=== PATIENT | male | born 1965 | race Caucasian/White ===

== ENCOUNTER 2017-03-26 13:46 | Emergency (ER) | payer BC ==
[2017-03-26] MEDS ORDERED: Diphtheria,Pertussis(Acell),Tetanus Vaccine 0.5 ML SDV IM ONE (13:55)
[2017-03-26] MEDS ORDERED: Lidocaine 1% 20 ML MDV INJECT ONE (13:56)
[2017-03-26] MEDS ORDERED: Bacitracin Oint 1 GM U/D Packet TOP ONE (13:57)
[2017-03-26 13:59] VITALS: BP 175/116
--- NOTE | 2017-03-26 14:38 | EDM.PDOC ---
ED HPI Skin/Rash - General Chief Complaint: Laceration Stated Complaint: CUT LT MIDDLE FINGER Time Seen by Provider: 03/26/17 13:55 Source: Reports: Patient History Limitations: Reports: No limitations - History of Present Illness INITIAL COMMENTS - FREE TEXT/NARRATIVE: pt was pruning trees and lacerated his fingerr on the craig aspec-- 1/2 inch. Pt has full sensation and movement in finger. Timing: Reports: still present Location, Skin: Reports: upper extremity, left Known Identified Source: yes Place: home - Related Data Allergies Allergy/AdvReac Type Severity Reaction Status Date / Time No Known Allergies Allergy Verified 03/26/17 14:11 Home Meds: Ambulatory Orders Medication Instructions Recorded Confirmed NK [No Known Home Meds] 03/26/17 03/26/17 Past Medical History - Infectious Disease History Infectious Disease History: Reports: Chicken pox - Past Surgical History GI Surgical History: Reports: Hernia, inguinal Social & Family History - Tobacco Use Smoking Status *Q: Never Smoker Second Hand Smoke Exposure: No - Caffeine Use Caffeine Use: Reports: Coffee - Alcohol Use Days Per Week of Alcohol Use: 3 Number of Drinks Per Day: 3 Total Drinks Per Week: 9 - Recreational Drug Use Recreational Drug Use: No ED ROS GENERAL - Review of Systems Review Of Systems: See Below Constitutional: Reports: no symptoms HEENT: Reports: No symptoms Respiratory: Reports: No Symptoms Cardiovascular: Reports: No symptoms Endocrine: Reports: no symptoms GI/Abdominal: Reports: No symptoms : Reports: no symptoms Skin: Reports: other ( laceration of middle finger on left) Neurological: Reports: No Symptoms ED EXAM, SKIN/RASH Exam: See Below Text/Narrative:: pt has a laceration of the middle finger on the left. Exam Limited By: No limitations General Appearance: alert Extremities: other (Pt has a 1/2 inch laceration on the middle finger on the left. he has normal sensation and normal motion. ) Course - Vital Signs Last Recorded V/S: Last Vital Signs Temp 35.9 C 03/26/17 14:08 Pulse 95 03/26/17 14:08 Resp 16 03/26/17 14:08 BP 175/116 H 03/26/17 14:08 Pulse Ox 93 L 03/26/17 14:08 - Orders/Labs/Meds Orders: Active Orders 24 hr Category Date Time Status Vaccines to be Administered [RC] PER UNIT ROUTINE Care 03/26/17 13:55 Active Meds: Medications Discontinued Medications Generic Name Dose Route Start Last Admin Trade Name Redd PRN Reason Stop Dose Admin Bacitracin 1 dose 03/26/17 13:57 03/26/17 14:23 Bacitracin Oint 1 Gm TOP 03/26/17 13:58 1 dose ONETIME ONE Administration Diphtheria/Tetanus/Acell Pertussis 0.5 ml 03/26/17 13:55 03/26/17 14:13 Adacel IM 03/26/17 13:56 0.5 ml .ONCE ONE Administration Lidocaine HCl 20 ml 03/26/17 13:56 03/26/17 14:15 Xylocaine 1% INJECT 03/26/17 13:57 20 ml ONETIME ONE Administration - Re-Assessments/Exams Free Text/Narrative Re-Assessment/Exam: 03/26/17 14:36 area was cleansed well and infiltrated with lidocaine 1%. The wound was closed with 5-0 chromic and %5-0 prolene It was dressed with bacatracin pressure dressing. Departure - Departure Time of Disposition: 14:38 Disposition: Home, Self-Care 01 Condition: fair Clinical Impression: Laceration of left middle finger Forms: ED Department Discharge Care Plan Goals: keep dry, no further ointments, suture removal in 7-8 days. - My Orders Last 24 Hours: My Active Orders 03/26/17 13:55 Vaccines to be Administered [RC] PER UNIT ROUTINE - Assessment/Plan Last 24 Hours: My Active Orders 03/26/17 13:55 Vaccines to be Administered [RC] PER UNIT ROUTINE
== END 2017-03-26 15:03 | disposition home or self-care (01) ==
LOC: JP.ED 13:46
DX: S61.213A Laceration without foreign body of left middle finger without damage to nail, initial encounter (principal); Z23 Encounter for immunization; W26.8XXA Contact with other sharp object(s), not elsewhere classified, initial encounter; Y92.009 Unspecified place in unspecified non-institutional (private) residence as the place of occurrence of the external cause
CPT/HCPCS: 12001; 90471; 90715; 99283-25

== ENCOUNTER 2022-01-27 09:46 | Emergency (ER) | payer BC ==
[2022-01-27 09:55] VITALS: BP 145/95; PULSE 79
[2022-01-27] MEDS ORDERED: Sodium Chloride 0.9% 10 ML Syringe FLUSH PRN (09:55)
[2022-01-27] MEDS ORDERED: Albuterol/Ipratropium 3.0-0.5 MG/3 ML Neb Soln NEB ONE (09:56)
[2022-01-27] MEDS ORDERED: LORazepam 2 MG/ML SDV IVPUSH ONE (09:58)
[2022-01-27] MEDS ORDERED: Sodium Chloride 0.9% 75 ML IV SCH (11:30)
[2022-01-27] MEDS ORDERED: Iopamidol 755 Mg/ML 100 ML Bottle IV SCH (11:30)
== END 2022-01-27 12:51 | disposition home or self-care (01) ==
LOC: JP.ED 09:46
DX: R06.02 Shortness of breath (principal)
CPT/HCPCS: 36415; 71046; 71046-26; 71275; 71275-26; 80053; 83880; 84484; 85025; 85379; 93005; 93010; 94640; 96374; 99282; 99285-25; J2060; J7620-GY; Q9967

== ENCOUNTER 2022-02-26 06:59 | Emergency (ER) | payer BC ==
[2022-02-26] MEDS ORDERED: Sodium Chloride 0.9% 10 ML Syringe FLUSH PRN (07:04)
[2022-02-26 07:05] VITALS: PULSE 111
[2022-02-26] MEDS ORDERED: LORazepam 2 MG/ML SDV IVPUSH ONE (07:34)
[2022-02-26] MEDS ORDERED: Thiamine 200 MG/2 ML MDV IVPUSH ONE (07:37)
[2022-02-26] MEDS ORDERED: Sodium Chloride 0.9% 1,000 ML IV SCH (08:00)
[2022-02-26 08:07] LABS: CORONAVIRUS COVID-19 NAA NEGATIVE (NEGATIVE)
[2022-02-26] MEDS ORDERED: PHENobarbital Sodium 65 MG/ML SDV IVPUSH ONE (08:26)
[2022-02-26 09:37] VITALS: BP 124/68
== END 2022-02-26 09:38 | disposition other institution (70) ==
LOC: JP.ED 06:59
DX: S00.03XA Contusion of scalp, initial encounter (principal); F10.239 Alcohol dependence with withdrawal, unspecified; K70.30 Alcoholic cirrhosis of liver without ascites; Z20.822 Contact with and (suspected) exposure to COVID-19; W19.XXXA Unspecified fall, initial encounter
CPT/HCPCS: 0241U; 36415; 70450; 80048; 80076; 80307; 82140; 85025; 85610; 85730; 93005; 93010; 96374; 96375; 99284; 99285-25; J2060; J2560; J3411; J3490; J7030

== ENCOUNTER 2022-03-05 07:43 | Inpatient (IN) | payer BC ==
[2022-03-05] MEDS ORDERED: Magnesium Hydroxide 400 MG/5 ML Susp 30 ML Cup PO PRN (14:18)
[2022-03-05] MEDS ORDERED: Ibuprofen 600 MG Tab PO PRN (14:18)
[2022-03-05] MEDS ORDERED: Ondansetron 4 MG/2 ML SDV IV PRN (14:18)
[2022-03-05] MEDS ORDERED: LORazepam 2 MG/ML SDV IVPUSH PRN (14:18)
[2022-03-05] MEDS ORDERED: Albuterol 0.083% 2.5 MG/3 ML Neb Soln NEB PRN (14:18)
[2022-03-05] MEDS ORDERED: Ondansetron 4 MG Tab.DIS PO PRN (14:18)
[2022-03-05] MEDS: Lactulose Soln 10 GM/15 ML 15 ML UD Cup PO SCH (16:06)
[2022-03-05] MEDS ORDERED: prednisoLONE 15 MG/5 ML Soln UD Cup PO ONE (16:15)
[2022-03-05 16:56] LABS: CORONAVIRUS COVID-19 NAA NEGATIVE (NEGATIVE)
[2022-03-05] MEDS: Melatonin 3 MG Tab PO SCH (20:18)
[2022-03-05] MEDS: Formoterol/Mometasone 100-5 MCG 8.8 GM Inhaler IH SCH (20:18)
[2022-03-05] MEDS ORDERED: Non-Formulary Medication 1 Each (Budesonide/Formoterol Fumarate [Symbicort 80-4.5 Mcg Inha INH SCH (21:00)
[2022-03-06] MEDS: Formoterol/Mometasone 100-5 MCG 8.8 GM Inhaler IH SCH ×2 (07:25→20:13)
[2022-03-06] MEDS: Folic Acid 1 MG Tab PO SCH (09:06)
[2022-03-06] MEDS: Pantoprazole 40 MG Tab.CR PO SCH (09:06)
[2022-03-06] MEDS: Lactulose Soln 10 GM/15 ML 15 ML UD Cup PO SCH (09:06)
[2022-03-06] MEDS: prednisoLONE 15 MG/5 ML Soln UD Cup PO SCH (09:07)
[2022-03-06] MEDS: Phytonadione 5 MG Tab PO SCH (09:07)
[2022-03-06] MEDS: Thiamine 100 MG Tab PO SCH (09:07)
[2022-03-06] MEDS: Melatonin 3 MG Tab PO SCH (20:05)
[2022-03-07] MEDS: Formoterol/Mometasone 100-5 MCG 8.8 GM Inhaler IH SCH ×2 (07:30→21:29)
[2022-03-07] MEDS: Phytonadione 5 MG Tab PO SCH (08:40)
[2022-03-07] MEDS: Lactulose Soln 10 GM/15 ML 15 ML UD Cup PO SCH (08:40)
[2022-03-07] MEDS: Folic Acid 1 MG Tab PO SCH (08:40)
[2022-03-07] MEDS: prednisoLONE 15 MG/5 ML Soln UD Cup PO SCH (08:40)
[2022-03-07] MEDS: Pantoprazole 40 MG Tab.CR PO SCH (08:40)
[2022-03-07] MEDS: Thiamine 100 MG Tab PO SCH (08:40)
[2022-03-07] MEDS: Melatonin 3 MG Tab PO SCH (21:29)
[2022-03-08] MEDS: Pantoprazole 40 MG Tab.CR PO SCH (07:19)
[2022-03-08] MEDS: Formoterol/Mometasone 100-5 MCG 8.8 GM Inhaler IH SCH ×2 (07:27→21:24)
[2022-03-08] MEDS: Lactulose Soln 10 GM/15 ML 15 ML UD Cup PO SCH (09:51)
[2022-03-08] MEDS: prednisoLONE 15 MG/5 ML Soln UD Cup PO SCH (09:52)
[2022-03-08] MEDS: Thiamine 100 MG Tab PO SCH (09:52)
[2022-03-08] MEDS: Folic Acid 1 MG Tab PO SCH (09:52)
[2022-03-08] MEDS: Phytonadione 5 MG Tab PO SCH (09:52)
[2022-03-08] MEDS: Melatonin 3 MG Tab PO SCH (21:24)
[2022-03-09] MEDS: Formoterol/Mometasone 100-5 MCG 8.8 GM Inhaler IH SCH ×2 (07:07→20:50)
[2022-03-09] MEDS: Thiamine 100 MG Tab PO SCH (09:14)
[2022-03-09] MEDS: Folic Acid 1 MG Tab PO SCH (09:14)
[2022-03-09] MEDS: Lactulose Soln 10 GM/15 ML 15 ML UD Cup PO SCH (09:14)
[2022-03-09] MEDS: prednisoLONE 15 MG/5 ML Soln UD Cup PO SCH (09:14)
[2022-03-09] MEDS: Pantoprazole 40 MG Tab.CR PO SCH (09:14)
[2022-03-09] MEDS: Citalopram 20 MG Tab PO SCH (12:23)
[2022-03-09] MEDS: Melatonin 3 MG Tab PO SCH (20:49)
[2022-03-10] MEDS: Formoterol/Mometasone 100-5 MCG 8.8 GM Inhaler IH SCH ×2 (07:37→21:04)
[2022-03-10] MEDS: Pantoprazole 40 MG Tab.CR PO SCH (10:05)
[2022-03-10] MEDS: Lactulose Soln 10 GM/15 ML 15 ML UD Cup PO SCH (10:05)
[2022-03-10] MEDS: Citalopram 20 MG Tab PO SCH (10:05)
[2022-03-10] MEDS: Folic Acid 1 MG Tab PO SCH (10:05)
[2022-03-10] MEDS: prednisoLONE 15 MG/5 ML Soln UD Cup PO SCH (10:05)
[2022-03-10] MEDS: Thiamine 100 MG Tab PO SCH (10:06)
[2022-03-10] MEDS: Melatonin 3 MG Tab PO SCH (21:06)
[2022-03-11] MEDS: Formoterol/Mometasone 100-5 MCG 8.8 GM Inhaler IH SCH (07:27)
[2022-03-11 07:53] VITALS: BP 139/68; PULSE 60
[2022-03-11] MEDS: Pantoprazole 40 MG Tab.CR PO SCH (09:13)
[2022-03-11] MEDS: Lactulose Soln 10 GM/15 ML 15 ML UD Cup PO SCH (09:13)
[2022-03-11] MEDS: prednisoLONE 15 MG/5 ML Soln UD Cup PO SCH (09:13)
[2022-03-11] MEDS: Folic Acid 1 MG Tab PO SCH (09:14)
[2022-03-11] MEDS: Citalopram 20 MG Tab PO SCH (09:14)
[2022-03-11] MEDS: Thiamine 100 MG Tab PO SCH (09:15)
== END 2022-03-11 15:00 | disposition home health service (06) | DRG 280 ==
LOC: JP.ED 07:43 → JP.MS 13:45
PROVIDERS: ADMIT Internal Medicine; ATTEND Hospitalist
DX: K70.10 Alcoholic hepatitis without ascites (principal); K70.30 Alcoholic cirrhosis of liver without ascites; F10.231 Alcohol dependence with withdrawal delirium; E51.2 Wernicke's encephalopathy; E87.2 Acidosis; D61.818 Other pancytopenia; F41.9 Anxiety disorder, unspecified; Z20.822 Contact with and (suspected) exposure to COVID-19; I10 Essential (primary) hypertension; J44.9 Chronic obstructive pulmonary disease, unspecified; E66.9 Obesity, unspecified; R06.02 Shortness of breath; F17.290 Nicotine dependence, other tobacco product, uncomplicated; Z68.32 Body mass index [BMI] 32.0-32.9, adult; Z79.899 Other long term (current) drug therapy
CPT/HCPCS: 0241U; 36415; 71045; 71045-26; 80053; 80305-QW; 80307; 81001; 82140; 83605; 83690; 83880; 84484; 85025; 85027; 85610; 93005; 93010; 94640; 97110-GP; 97116-GP; 97161-GP; 97530-GP; 99284; 99285-25; A9270-GY

== ENCOUNTER 2022-04-13 02:48 | Emergency (ER) | payer BC ==
[2022-04-13 05:16] VITALS: BP 153/90; PULSE 103
== END 2022-04-13 05:20 | disposition home or self-care (01) ==
LOC: JP.ED 02:48
DX: K70.40 Alcoholic hepatic failure without coma (principal); F10.129 Alcohol abuse with intoxication, unspecified; I10 Essential (primary) hypertension; E66.9 Obesity, unspecified; Y90.6 Blood alcohol level of 120-199 mg/100 ml; Z20.822 Contact with and (suspected) exposure to COVID-19; Z68.31 Body mass index [BMI] 31.0-31.9, adult
CPT/HCPCS: 36415; 71046; 71046-26; 80053; 80307; 82140; 85025; 99283; 99285-25; U0002

== ENCOUNTER 2023-06-04 06:25 | Emergency (ER) | payer BC ==
[2023-06-04 06:45] VITALS: BP 163/93; PULSE 112
== END 2023-06-04 08:09 | disposition home or self-care (01) ==
LOC: JP.ED 06:25
DX: R04.0 Epistaxis (principal); I10 Essential (primary) hypertension; E66.9 Obesity, unspecified; Z72.0 Tobacco use; Z68.34 Body mass index [BMI] 34.0-34.9, adult
CPT/HCPCS: 30903; 99283

== ENCOUNTER 2023-06-05 08:12 | Emergency (ER) | payer BC ==
[2023-06-05 08:38] VITALS: BP 142/87; PULSE 111
[2023-06-05] MEDS ORDERED: Silver Nitrate Applicator Each TOP ONE (08:57)
[2023-06-05 09:56] LABS: BASOPHILS ABSOLUTE AUTO 0.03 K/uL (0.00-0.10); BASOPHILS PERCENT AUTO 0.5 % (0.1-1.3); EOSINOPHILS ABSOLUTE AUTO 0.03 K/uL (0.00-0.40); EOSINOPHILS PERCENT AUTO 0.5 % (0.0-5.4); HEMATOCRIT 35.8 % (38.4-49.7); HEMOGLOBIN 11.6 g/dL (12.9-16.9); IMMATURE GRAN PERCENT AUTO 0.3 % (0.0-0.7); LYMPHOCYTES ABSOLUTE AUTO 0.49 K/uL (0.8-3.3); LYMPHOCYTES PERCENT AUTO 7.5 % (11.4-47.7); MEAN CORPUSCULAR HEMOGLOBIN 27.6 pg (31.6-35.5); MEAN CORPUSCULAR HGB CONC 32.4 g/dL (31.6-35.5); MONOCYTES ABSOLUTE AUTO 0.73 K/uL (0.20-0.90); MONOCYTES PERCENT AUTO 11.2 % (3.3-12.6); PLATELET COUNT,PLT 107 K/uL (130-375); RED BLOOD CELL COUNT 4.21 M/uL (4.14-5.76); WHITE BLOOD CELL COUNT,WBC 6.5 K/uL (3.2-11.0)
[2023-06-05 10:00] LABS: IMMATURE GRAN ABSOLUTE AUTO 0.02 K/uL (0.00-0.23)
[2023-06-05 10:12] LABS: INR 1.3; PROTHROMBIN TIME 13.4 sec (9.2-10.6)
[2023-06-05 10:17] LABS: A/G RATIO 0.9 (1.2-2.2); ALANINE AMINOTRANSFERASE,ALT 75 U/L (12-78); ALBUMIN 3.5 g/dL (3.4-5.0); ALKALINE PHOSPHATASE 169 U/L (46-116); ASPARTATE AMNIOTRANSFERASE,AST 145 U/L (15-37); BILIRUBIN TOTAL 3.1 mg/dL (0.2-1.0); BLOOD UREA NITROGEN,BUN 13 mg/dL (7-18); CARBON DIOXIDE,CO2 27 mmol/L (21-32); CHLORIDE,CL 99 mmol/L (100-108); CREATININE 1.1 mg/dL (0.8-1.3); EST CRCL DRUG DOSING (CG) 77.42 mL/min; ESTIMATED GFR 79 mL/min (>60); GLUCOSE RANDOM 114 mg/dL (74-106); POTASSIUM,K 4.4 mmol/L (3.6-5.2); PROTEIN TOTAL,TP 7.5 g/dL (6.4-8.2); SODIUM,NA 134 mmol/L (140-148)
[2023-06-05 10:18] LABS: ANION GAP 12.4 mmol/L (5.0-14.0)
== END 2023-06-05 10:35 | disposition home or self-care (01) ==
LOC: JP.ED 08:12
DX: R04.0 Epistaxis (principal)
CPT/HCPCS: 30901; 36415; 80053; 85025; 85610; 99283-25

== ENCOUNTER 2023-09-14 07:41 | Emergency (ER) | payer BC ==
[2023-09-14] MEDS ORDERED: Naloxone 0.4 MG/ML SDV IVPUSH PRN (08:21)
[2023-09-14] MEDS ORDERED: Sodium Chloride 0.9% 10 ML Syringe FLUSH PRN (08:21)
[2023-09-14] MEDS ORDERED: HYDROmorphone 1 MG/ML Syringe IVPUSH ONE (08:21)
[2023-09-14] MEDS ORDERED: Lactated Ringers 1,000 ML IV ONE (08:22)
[2023-09-14 08:42] LABS: BASOPHILS ABSOLUTE AUTO 0.08 K/uL (0.00-0.10); BASOPHILS PERCENT AUTO 1.5 % (0.1-1.3); EOSINOPHILS ABSOLUTE AUTO 0.04 K/uL (0.00-0.40); EOSINOPHILS PERCENT AUTO 0.8 % (0.0-5.4); HEMATOCRIT 26.8 % (38.4-49.7); HEMOGLOBIN 8.6 g/dL (12.9-16.9); IMMATURE GRAN PERCENT AUTO 0.2 % (0.0-0.7); LYMPHOCYTES ABSOLUTE AUTO 1.08 K/uL (0.8-3.3); LYMPHOCYTES PERCENT AUTO 20.5 % (11.4-47.7); MEAN CORPUSCULAR HEMOGLOBIN 27.5 pg (31.6-35.5); MEAN CORPUSCULAR HGB CONC 32.1 g/dL (31.6-35.5); MEAN CORPUSCULAR VOLUME 85.6 fL (81.4-99.0); MONOCYTES ABSOLUTE AUTO 0.64 K/uL (0.20-0.90); MONOCYTES PERCENT AUTO 12.2 % (3.3-12.6); NEUTROPHILS ABSOLUTE AUTO 3.41 K/uL (1.0-7.6); NEUTROPHILS PERCENT AUTO 64.8 % (40.0-78.1); PLATELET COUNT,PLT 94 K/uL (130-375); RED BLOOD CELL COUNT 3.13 M/uL (4.14-5.76); WHITE BLOOD CELL COUNT,WBC 5.3 K/uL (3.2-11.0)
[2023-09-14 08:44] LABS: IMMATURE GRAN ABSOLUTE AUTO 0.01 K/uL (0.00-0.23)
[2023-09-14 09:00] LABS: ANION GAP 11.9 mmol/L (5.0-14.0); CALCIUM 7.6 mg/dL (8.5-10.1); CREATININE 1.2 mg/dL (0.8-1.3); EST CRCL DRUG DOSING (CG) 70.97 mL/min; POTASSIUM,K 3.9 mmol/L (3.6-5.2)
[2023-09-14 09:05] LABS: INR 1.6; PTT,PARTIAL THROMBOPLSTIN TIME 29.4 sec (21.8-27.3)
[2023-09-14] MEDS ORDERED: Calcium Carbonate 500 MG Tab.Chew PO ONE (09:09)
[2023-09-14] MEDS ORDERED: Iopamidol 755 Mg/ML 100 ML Bottle IV ONE (09:17)
[2023-09-14] MEDS ORDERED: Sodium Chloride 0.9% 75 ML IV SCH (09:30)
[2023-09-14] MEDS ORDERED: LORazepam 2 MG/ML SDV IVPUSH PRN (12:36)
[2023-09-14] MEDS ORDERED: Multivitamins with Iron/Calcium/Folic Acid/Minerals Tab PO ONE (13:57)
[2023-09-14] MEDS ORDERED: Folic Acid 1 MG Tab PO ONE (13:58)
[2023-09-14] MEDS ORDERED: D5 1/2 NS w/ 20 mEq/L KCl 1,000 ML IV SCH (14:00)
[2023-09-14] MEDS ORDERED: Thiamine 200 MG/2 ML MDV IVPUSH SCH (14:00)
[2023-09-14 14:02] LABS: HEMATOCRIT 24.8 % (38.4-49.7); HEMOGLOBIN 7.7 g/dL (12.9-16.9)
[2023-09-14] MEDS ORDERED: Thiamine 500 MG in Sodium Chloride 0.9% 250 ML IV ONE (14:30)
[2023-09-14] MEDS ORDERED: LORazepam 1 MG Tab PO ONE (15:55)
[2023-09-14 16:27] VITALS: BP 102/62; PULSE 99
== END 2023-09-14 16:44 | disposition home or self-care (01) ==
LOC: JP.ED 07:41
DX: S30.1XXA Contusion of abdominal wall, initial encounter (principal); S80.11XA Contusion of right lower leg, initial encounter; S00.33XA Contusion of nose, initial encounter; S70.11XA Contusion of right thigh, initial encounter; S60.512A Abrasion of left hand, initial encounter; K70.30 Alcoholic cirrhosis of liver without ascites; D69.6 Thrombocytopenia, unspecified; D62 Acute posthemorrhagic anemia; I10 Essential (primary) hypertension; E66.9 Obesity, unspecified; Z68.34 Body mass index [BMI] 34.0-34.9, adult; Z79.899 Other long term (current) drug therapy; W18.30XA Fall on same level, unspecified, initial encounter; W22.8XXA Striking against or struck by other objects, initial encounter
CPT/HCPCS: 36415; 36430; 70450; 72191; 80048; 85014; 85018; 85025; 85610; 85730; 86850; 86900; 86901; 86920; 86922; 96361; 96374; 99285; A9270; J1170; J3490; J7120; P9016; Q9967